=== PATIENT | female | born 1965 | race Caucasian/White ===

== ENCOUNTER 2022-12-11 22:12 | Emergency (ER) | payer MEDICAID, SELFPAY ==
[2022-12-11] MEDS ORDERED: Ondansetron PF 4 MG/2 ML Vial ONE (22:35)
[2022-12-11] MEDS ORDERED: Morphine 4 MG/ML VIAL ONE (22:35)
[2022-12-11] MEDS ORDERED: diphenhydrAMINE 50 MG/ML VIAL ONE (22:39)
[2022-12-11] MEDS ORDERED: Sodium Chloride 0.9% 1,000 ML ONE (22:39)
[2022-12-11] MEDS ORDERED: Metoclopramide HCl 10 MG/2 ML VIAL ONE ×2 (22:39→23:22)
[2022-12-11] MEDS ORDERED: Sodium Chloride 0.9% 100 ML ONE ×2 (22:39→23:23)
[2022-12-11] MEDS ORDERED: methylPREDNISolone Sod Succ/PF 125 MG/2 ML VIAL ONE (23:22)
[2022-12-11] MEDS ORDERED: Magnesium 2 GM/50 ML BAG (IN WATER) ONE (23:22)
== END 2022-12-12 03:45 | disposition home or self-care (01) ==
LOC: NAV ERS 22:12
DX: G43.909 Migraine, unspecified, not intractable, without status migrainosus (principal); I10 Essential (primary) hypertension; Z79.899 Other long term (current) drug therapy
CPT/HCPCS: 96365; 96366; 96367; 96375; J1200; J2270; J2405; J2765; J2930; J3475; J7050